=== PATIENT | male | born 1950 | race Two or more races ===

== ENCOUNTER 2020-04-23 12:59 | Emergency (ER) | payer OTHER, MEDICARE, MEDICAID, SELFPAY ==
[2020-04-23 13:04] VITALS: BP 154/62; PULSE 57; RESP 16; TEMP 36.6; O2SAT 99; BMI 28.3
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
== END 2020-04-23 15:17 | disposition home or self-care (01) ==
PROVIDERS: Emergency Provider Emergency Medicine
DX: S09.90XA Unspecified injury of head, initial encounter (principal); G44.309 Post-traumatic headache, unspecified, not intractable; S80.02XA Contusion of left knee, initial encounter; S80.01XA Contusion of right knee, initial encounter; M54.2 Cervicalgia; M54.5 Low back pain; V43.62XA Car passenger injured in collision with other type car in traffic accident, initial encounter; Y93.9 Activity, unspecified; Y92.410 Unspecified street and highway as the place of occurrence of the external cause; Y99.9 Unspecified external cause status
CPT/HCPCS: 70450; 72125; 73560; 99284

== ENCOUNTER 2020-06-27 16:25 | Outpatient (REF) | payer OTHER, MEDICARE, MEDICAID, SELFPAY | END 2020-06-27 16:26 | disposition home or self-care (01) | LOC: HO.WFDLNP 16:25 | PROVIDERS: Visit Provider Internal Medicine | DX: Z20.822 Contact with and (suspected) exposure to COVID-19 (principal) | CPT/HCPCS: C9803; U0003 ==

== ENCOUNTER 2020-11-22 08:52 | Outpatient (REF) | payer MEDICARE, MEDICAID, SELFPAY | END 2020-11-22 08:53 | disposition home or self-care (01) | LOC: HO.LAB 08:52 | PROVIDERS: Visit Provider Internal Medicine | DX: Z20.822 Contact with and (suspected) exposure to COVID-19 (principal) | CPT/HCPCS: C9803; U0003; U0005 ==

== ENCOUNTER 2021-06-07 12:26 | Outpatient (REF) | payer MEDICARE, MEDICAID, SELFPAY | END 2021-06-07 12:27 | disposition home or self-care (01) | LOC: HO.WFDLDS 12:26 | PROVIDERS: Visit Provider Internal Medicine | DX: Z20.822 Contact with and (suspected) exposure to COVID-19 (principal) | CPT/HCPCS: C9803; U0003; U0005 ==

== ENCOUNTER 2021-12-07 14:10 | Emergency (ER) | payer OTHER, MEDICARE, SELFPAY ==
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
[2021-12-07 14:31] VITALS: BP 131/56; PULSE 53; RESP 16; TEMP 36.7; O2SAT 98; BMI 28.9
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
[2021-12-07] MEDS: Lidocaine 4 % Patch ADH..PATCH 1 PATCH TRANSDERMA (17:16)
[2021-12-07] MEDS: Ketorolac Tromethamine 30 MG/ML VIAL IM (17:16)
== END 2021-12-07 17:23 | disposition home or self-care (01) ==
PROVIDERS: Emergency Provider Emergency Medicine Emergency Medical Services; PCP Internal Medicine
DX: M25.511 Pain in right shoulder (principal); M54.2 Cervicalgia; I10 Essential (primary) hypertension; E11.9 Type 2 diabetes mellitus without complications; Z79.899 Other long term (current) drug therapy
CPT/HCPCS: 73000; 73030; 96372; 99283; 99284; J1885

== ENCOUNTER 2022-06-19 08:35 | Outpatient (REF) | payer MEDICARE, MEDICAID, SELFPAY ==
--- NOTE | ~2022-06-19 | XR_ITS ---
EXAMINATION: XR SHOULDER, LEFT CLINICAL INFORMATION: Left shoulder pain COMPARISON: None TECHNIQUE: Three views of the left shoulder. FINDINGS: Mild degenerative spurring of the inferior glenoid rim and femoral head. Mild acromioclavicular osteoarthritis. No acute fracture or malalignment. No suspicious bone lesion or soft tissue calcification. XR/XR shoulder LT min 2V IMPRESSION: Mild acromioclavicular and glenohumeral osteoarthritis.
== END 2022-06-19 08:36 | disposition home or self-care (01) ==
LOC: HO.HOSX 08:35
PROVIDERS: PCP Internal Medicine; Visit Provider Physician Assistant
DX: M19.011 Primary osteoarthritis, right shoulder (principal); M19.012 Primary osteoarthritis, left shoulder
CPT/HCPCS: 73030; 99202

== ENCOUNTER 2022-11-10 14:18 | Emergency (ER) | payer MEDICARE, MEDICAID, SELFPAY ==
--- NOTE | ~2022-11-10 | CT_ITS ---
EXAMINATION: CT CERVICAL SPINE WITHOUT CONTRAST CLINICAL INFORMATION: Fall COMPARISON: April 23, 2020 TECHNIQUE: CT cervical spine with coronal and sagittal reconstructions. This CT examination was performed using dose optimization techniques as appropriate, variously including the following: *Automated exposure control *Adjustment of mA and/or kV according to patient size (this includes techniques or standardized protocols for targeted exams where dose is matched to indication/reason for exam; i.e. extremities or head) *Use of iterative reconstruction technique DLP: 503 mGy-cm FINDINGS: No abnormal prevertebral soft tissue swelling is seen. Paraspinal muscle fat planes are maintained. No acute cervical spine fracture is identified. There is left-sided anterior neural foraminal encroachment related to spurring of joints of [place] at the C6-C7 level. Degenerative disc disease C5-C7 with spurring is appreciated. There is degenerative facet disease seen on the left C2-C4 and on the right C2-C5. Carotid artery calcification present. Mild changes of centrilobular emphysema seen in the lung apices. CT/CT cervical spine wo IV con IMPRESSION: No acute cervical spine fracture. Cervical spondylosis as described. Fleischner guidelines were followed.
--- NOTE | ~2022-11-10 | CT_ITS ---
EXAMINATION: CT HEAD WITHOUT CONTRAST CLINICAL INFORMATION: Fall COMPARISON: April 23, 2020 TECHNIQUE: Contiguous axial imaging was performed from the skull base to vertex without intravenous administration of contrast. This CT examination was performed using dose optimization techniques as appropriate, variously including the following: *Automated exposure control *Adjustment of mA and/or kV according to patient size (this includes techniques or standardized protocols for targeted exams where dose is matched to indication/reason for exam; i.e. extremities or head) *Use of iterative reconstruction technique DLP: 589 mGy-cm FINDINGS: No intracranial hemorrhage is identified. No significant mass effect or midline structure shift. No abnormal extra-axial fluid collection. There is again noted to be some mild stable periventricular white matter low density which may be on the basis of microangiopathy. Cadet-white matter interface is maintained. Temporomandibular joints intact. Pterygoid plates intact. Visualized mastoid air cells unremarkable. There is some chronic left maxillary sinus disease. There is a small bony spicule adjacent to the lateral left maxillary sinus wall within the sinus which may be sequela of previous trauma. CT/CT head/brain wo IV con IMPRESSION: No acute intracranial pathology.
[2022-11-10 14:30] VITALS: BP 170/74; PULSE 58; RESP 18; TEMP 36.4; O2SAT 97; BMI 29.0
--- NOTE | 2022-11-10 14:35 | ED.GENADULT ---
HPI - General Adult General Chief complaint: Fall Stated complaint: Fall/Hit head/Neck pain/ on thinners Time Seen by Provider: 11/10/22 14:41 Source: patient and RN notes reviewed Mode of arrival: ambulatory Limitations: no limitations History of Present Illness HPI narrative: This is a 72-year-old male, with a past medical history of diabetes and heart condition , who presents to the emergency department with complaints of right-sided neck pain status post fall today. Patient reports that 2 hours prior to his arrival he was kneeling on the edge of an empty pool when he accidentally fell forward into the pool, hitting the top of his head. He states this fall was approximately 5-6 feet. Patient denies any loss of consciousness. He was able to ambulate after the injury, however reports that he has had right-sided neck pain. He denies any visual changes, numbness, tingling, weakness, headaches, chest pain, shortness of breath, abdominal pain, nausea, vomiting, or diarrhea. When asked if he is on anti coagulants he states that he is not sure, there are no anticoagulant is listed on his home medication list. No other complaints or concerns at this time. MD complaint: Head injury Onset (ago): day(s) Location: head Radiation: non-radiation and neck Pain Consistency: constant Relieving factors: none Exacerbating factors: none Associated symptoms: denies other symptoms Treatments prior to arrival: none Related Data Previous Rx's Medication Instructions Recorded acetaminophen 500 mg tablet 500 mg PO Q6H PRN fever or pain 12/07/21 (Tylenol Extra Strength) #14 tabs cyclobenzaprine 5 mg tablet 5 mg PO Q8H PRN pain (scale score 12/07/21 7-10) 5 days #14 tabs lidocaine 5 % topical patch 1 patch topical DAILY PRN pain #30 12/07/21 (Lidoderm) ea naproxen 500 mg tablet 500 mg PO BID PRN pain 10 days #20 12/07/21 tabs Allergies Allergy/AdvReac Type Severity Reaction Status Date / Time No Known Allergies Allergy Verified 11/10/22 14:26 [No Known Allergies*] Review of Systems Review of Systems: Constitutional: No Weight loss, No Fever, No Chills, No Night Sweats, No Fatigue, No Malaise ENT/Mouth: No Hearing loss, No Ear Pain, No Nasal Congestion, No Sinus Pain, No Hoarseness, No sore throat, No Rhinorrhea, No Swallowing Difficulty Eyes: No Eye Pain, No Swelling, No Redness, No Foreign Body, No Discharge, No Vision Changes Cardiovascular: No Chest Pain, No SOB, No Dyspnea on Exertion, No Orthopnea, No Edema, No Palpitations Respiratory: No Cough, No Sputum, No Wheezing, No Smoke Exposure, No Dyspnea Gastrointestinal: No Nausea, No Vomiting, No Diarrhea, No Constipation, No Abdominal pain, No Hematochezia, No Melena Genitourinary: No irregular bleeding, No Dysuria, No Urinary Frequency, No Hematuria, No Urinary Incontinence/retention, No Urgency, No Flank Pain, No Urinary Flow Changes, No Hesitancy Musculoskeletal: +neck pain, No joint pain, No Myalgias, No Joint Swelling Skin: No Skin Lesions, No rash Neuro: No Weakness, No Numbness, No Paresthesias, No Loss of Consciousness, No Dizziness, No Headache Psych: No Anxiety/Panic, No Depression, No SI/HI/AH/VH, No Social Issues, Heme/Lymph: No Bruising, No Bleeding,No Lymphadenopathy Endocrine: No Polyuria, No Polydipsia, No Temperature Intolerance Yes all other systems are reviewed and are negative Constitutional: Constitutional: Reports as per [facility] Past Medical History Medical History Diabetes HTN (hypertension) Surgical History History of heart artery stent Social History Social History (Updated 06/19/22 @ 09:03 by Carol Canela) Alcohol intake: never Patient Tobacco Use Status: Never used Tobacco Smoked in Last 30 Days: No Use of substances other than those prescribed or required for medical reasons: No Advance Directives: No Advance Directives Information Provided: No Current occupational status: retired and disabled Current occupation: right hand dominant Physical Exam ED Vital Signs: Vital Signs - 24 hr 11/10/22 14:30 11/10/22 14:41 Temperature 97.6 F 97.7 F Pulse Rate 58 54 Respiratory Rate 18 18 Blood Pressure 170/74 H 164/75 H Pulse Oximetry 97 95 Oxygen Delivery Method Room Air Room Air BMI result Body Mass Index 29.0 Const Other: Patient presenting in cervical collar General: cooperative, comfortable and no acute distress Orientation/consciousness: patient oriented x3 Limitations: no limitations HENMT Head: Yes normal to inspection, Yes normocephalic and Yes atraumatic Ears: hearing grossly normal bilaterally General nose exam: Normal external nose present Face and sinus: Yes normal facial exam Mouth: Normal oral and palatal mucosa present, oropharynx normal and moist mucous membranes Throat: Yes posterior oropharynx normal Eyes General: appearance normal, both eyes and all related structures Eyelids: Yes eyelids normal Conjunctivae: conjunctivae normal Sclerae: sclerae normal Pupils: Equal, round and reactive pupils present EOM: EOMs intact bilaterally Neck Neck: Yes normal visual inspection, Yes full ROM and Yes no lymphadenopathy Lymphatic: no lymphadenopathy noted Chest Chest palpation & inspection: normal inspection of the chest Resp Effort & Inspection: normal respiratory effort and able to speak in complete sentences Auscultation: clear to auscultation bilaterally, no crackles, no rales, no rhonchi and no wheezes Cardio Rate: regular rate Rhythm: regular rhythm Heart sounds: S1 normal heart sound present and S2 normal heart sound present GI Inspection: Yes normal to inspection Back/Spine/Pelvis Other: No midline cervical spine tenderness, patient has mild tenderness to palpation over the cervical paraspinous muscles on the right, range of motion is full and intact Skin Other: Superficial abrasion noted to the top of patient's head, no active bleeding. General skin exam: no rashes or lesions noted Trauma: no lacerations or abrasions Wounds: no wounds Neuro General: patient oriented x3 and moves all extremities Cranial nerves: Yes Equal, round and reactive pupils present Extrem Other: Right shoulder is nontender full range of motion of bilateral upper and lower extremities General: Yes normal to inspection Right upper extremity: normal to inspection Left upper extremity: normal to inspection Right lower extremity: normal to inspection Left lower extremity: normal to inspection Course Course Course Narrative: RME: 72 yold preesnts to the ED for head trauma. patient was helping freind and fell head first into a dry pool about 4ft. No loss of consciousness. patient takes asprin. Head CT and Cervical SPine CT. placed in C-collar. Jenny to the ED bedf 15. Reevaluation(s) Reevaluation #1: CT head and neck are unremarkable for any ICH or fractures in the neck, evidence of some degenerative changes in the neck. 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 Advised to take [id number] Tylenol, gentle stretching here ice, and return precautions given to patient. Patient understands and agrees with plan. Time: 16:47 Medical Decision Making Medical Decision Making [facility] Narrative: 72-year-old male, with a past medical history of diabetes and ?heart condition?, presenting to the emergency department status post fall into an empty pool landing on the top of his head which occurred 2 hours prior to arrival. On arrival, blood pressure 170/74, all vital signs within normal limits. Patient is unsure whether not he is on blood thinners at this time. On examination patient is neurologically intact only complaining of right-sided neck pain. Difficult to assess neck pain as patient was placed in cervical collar per EMS. Will reassess once this is removed. Plan CT head and neck Differential Diagnosis Differential Diagnoses: The differential diagnosis associated with the presentation includes Subdural hematoma, ICH, closed head injury, cervical spine fracture, neck pain Admission/Observation Consideration of admission/observation: Escalation of care including admission/observation considered Lab Data [facility] Lab Attestation statement: I reviewed the patient's lab results. Radiology Impression Discussion of test interpretation with radiology: I have reviewed the radiologist's reading. Radiologist Impression: EXAMINATION: CT HEAD WITHOUT CONTRAST CLINICAL INFORMATION: Fall? COMPARISON: April 23, 2020 TECHNIQUE: Contiguous axial imaging was performed from the skull base to vertex without intravenous administration of contrast. This CT examination was performed using dose optimization techniques as appropriate, variously including the following: *Automated exposure control *Adjustment of mA and/or kV according to patient size (this includes techniques or standardized protocols for targeted exams where dose is matched to indication/reason for exam; i.e. extremities or head) *Use of iterative reconstruction technique DLP: 589 mGy-cm FINDINGS: No intracranial hemorrhage is identified. No significant mass effect or midline structure shift. No abnormal extra-axial fluid collection. There is again noted to be some mild stable periventricular white matter low density which may be on the basis of microangiopathy. Cadet-white matter interface is maintained. Temporomandibular joints intact. Pterygoid plates intact. Visualized mastoid air cells unremarkable. There is some chronic left maxillary sinus disease. There is a small bony spicule adjacent to the lateral left maxillary sinus wall within the sinus which may be sequela of previous trauma. ? CT/CT head/brain wo IV con IMPRESSION: No acute intracranial pathology. Dictated By: Manuel Colon MD Signed By: <Electronically signed by Manuel Colon MD in [place]> 11/10/22 1625 DD/ 1511 EXAMINATION: CT CERVICAL SPINE WITHOUT CONTRAST CLINICAL INFORMATION: Fall? COMPARISON: April 23, 2020 TECHNIQUE: CT cervical spine with coronal and sagittal reconstructions.? This CT examination was performed using dose optimization techniques as appropriate, variously including the following: *Automated exposure control *Adjustment of mA and/or kV according to patient size (this includes techniques or standardized protocols for targeted exams where dose is matched to indication/reason for exam; i.e. extremities or head) *Use of iterative reconstruction technique DLP: 503 mGy-cm FINDINGS: No abnormal prevertebral soft tissue swelling is seen. Paraspinal muscle fat planes are maintained. No acute cervical spine fracture is identified. There is left-sided anterior neural foraminal encroachment related to spurring of joints of [place] at the C6-C7 level. Degenerative disc disease C5-C7 with spurring is appreciated. There is degenerative facet disease seen on the left C2-C4 and on the right C2-C5. ? Carotid artery calcification present. Mild changes of centrilobular emphysema seen in the lung apices. CT/CT cervical spine wo IV con IMPRESSION: No acute cervical spine fracture. ? Cervical spondylosis as described. ? Fleischner guidelines were followed. Dictated By: Manuel Colon MD Signed By: <Electronically signed by Manuel Colon MD in [place]> 11/10/22 1636 DD/ 1511 TD/TT:? Tow Feeder: External Record Review External record reviewed: Inpatient record, Office record, Outpatient record, Prior outpatient labs, Prior outpatient radiology, Primary care record and Outside ED record Discharge Plan Discharge Clinical Impression: Closed head injury, Acute neck pain Patient Disposition: Home, Self-Care Additional Instructions: Your CT head and CT neck exams showed no new injury or fractures. Please take Tylenol as needed for your pain. Gentle massage, stretching and heat or ice can help with your symptoms. If any new or worsening symptoms occur including but not limited to headache, numbness or tingling, weakness, please return for re-evaluation. Prescriptions: No Action lidocaine [Lidoderm] 5 % adhesive patch,medicated 1 patch topical DAILY MDD remove after 12 hours PRN (Reason: pain) Qty: 30 0RF Rx Instructions: leave on most painful area for up to 12 hrs cyclobenzaprine 5 mg tablet 5 mg PO Q8H PRN (Reason: pain (scale score 7-10)) 5 Days Qty: 14 0RF acetaminophen [Tylenol Extra Strength] 500 mg tablet 500 mg PO Q6H PRN (Reason: fever or pain) Qty: 14 0RF naproxen 500 mg tablet 500 mg PO BID PRN (Reason: pain) 10 Days Qty: 20 0RF Interventions: ED Discharge Assessment Last Done: 11/10/22 16:55 Discharge Date/Time: 11/10/22 16:55
[2022-11-10 14:41] VITALS: BP 164/75; PULSE 54; RESP 18; TEMP 36.5; O2SAT 95
--- NOTE | 2022-11-10 15:02 | PC.NURSE ---
pt to CT scan
--- NOTE | 2022-11-10 15:17 | PC.NURSE ---
pt back from ct scan. pt aox4, reporting right shoulder pain post fall from kneeling into pool/ 1-2 inch abrasion on pt head, pt not reporting sig head pain, pain is mostly in right shoulder. pt takes 81mg asa
== END 2022-11-10 16:55 | disposition home or self-care (01) ==
PROVIDERS: Emergency Provider Internal Medicine; PCP Internal Medicine
DX: S09.90XA Unspecified injury of head, initial encounter (principal); M54.2 Cervicalgia; R51.9 Headache, unspecified; W01.10XA Fall on same level from slipping, tripping and stumbling with subsequent striking against unspecified object, initial encounter; Y93.9 Activity, unspecified; Y92.9 Unspecified place or not applicable; Y99.9 Unspecified external cause status; Z79.899 Other long term (current) drug therapy
CPT/HCPCS: 70450; 72125; 99284

== ENCOUNTER 2024-08-05 09:02 | Emergency (ER) | payer MEDICARE, MEDICAID, SELFPAY ==
--- NOTE | ~2024-08-05 | CT_ITS ---
EXAMINATION: CT CERVICAL SPINE WITHOUT CONTRAST CLINICAL INFORMATION: Status post fall. Neck pain. COMPARISON: CT dated November 10, 2022. TECHNIQUE: Contiguous axial images through the cervical spine using 3 mm collimation with bone and soft tissue algorithm. Sagittal and coronal reformatted images acquired. This CT examination was performed using dose optimization techniques as appropriate, variously including the following: *Automated exposure control *Adjustment of mA and/or kV according to patient size (this includes techniques or standardized protocols for targeted exams where dose is matched to indication/reason for exam; i.e. extremities or head) *Use of iterative reconstruction technique DLP: 491.04 mGy centimeter. FINDINGS: The craniocervical junction is intact. Degenerative changes in the occipital condyle/lateral masses of C1. Chondrocalcinosis at C2-3. Marginal osteophyte formation at C4-5 C5-6, C6-7, and C7-T1. Decreased intervertebral disc height at C6-7. Degenerative changes in the facet joints of C2-3, C3-4 and C7-T1. Incomplete ankylosis at the C2-3 facet joints. There is no gross malalignment between the vertebral bodies or the facet joints. C1 is intact. C2 is intact. C3 is intact. C4 is intact. C5 is intact. C6 is intact. C7 is intact. No gross prevertebral compartment hematoma. Calcified plaques in the carotid bulbs and proximal ICAs bilaterally. Calcified plaques in the proximal right CCA and right subclavian artery. Tympanic cavities and mastoid air cells are aerated. Calcified plaques in the cavernous supracavernous segments both ICA. Polypoid mucosal thickening, left maxillary sinus. Desiccation seen in the nuchal ligament at C5 level. CT/CT cervical spine wo IV con IMPRESSION: Multilevel cervical spondylosis without acute fracture or trauma-related listhesis. Fleischner guidelines were followed. Electronically signed by: Russ Tejeda MD 08/05/2024 10:21 AM [facility]
--- NOTE | ~2024-08-05 | CT_ITS ---
EXAMINATION: CT HEAD WITHOUT CONTRAST CLINICAL INFORMATION: Fall down stairs,? Head strike. COMPARISON: 11/10/2022. TECHNIQUE: Contiguous axial imaging was performed from the skull base to vertex without intravenous administration of contrast. This CT examination was performed using dose optimization techniques as appropriate, variously including the following: *Automated exposure control *Adjustment of mA and/or kV according to patient size (this includes techniques or standardized protocols for targeted exams where dose is matched to indication/reason for exam; i.e. extremities or head) *Use of iterative reconstruction technique FINDINGS: There is no evidence of intracranial hemorrhage or extra-axial fluid collection. There is no mass effect, or edema. No CT evidence of acute territorial infarct. Ventricles, sulci, and cisterns are normal in size and configuration for patient age. No hydrocephalus. No midline shift. Negative hyperdense MCA sign. Negative insular ribbon sign. Patchy periventricular and deep white matter hypoattenuation is consistent with mild to moderate small vessel ischemic changes. 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 Mild atheromatous calcification of the bilateral carotid siphons and V4 segments vertebral arteries bilaterally. Globes and orbital contents image normally. There are bilateral lens implants. No extracranial soft tissue abnormalities. Mucous retention cyst left maxillary antrum. The paranasal sinuses, mastoid air cells, and tympanic cavities are otherwise normally aerated. No suspicious bony abnormalities. There are no acute fractures evident. CT/CT head/brain wo IV con IMPRESSION: No acute intracranial abnormality. No fractures. Stable chronic findings. Electronically signed by: Richie Christensen MD 08/05/2024 10:25 AM [facility]
--- NOTE | ~2024-08-05 | XR_ITS ---
EXAMINATION: XR SHOULDER, RIGHT CLINICAL INFORMATION: fall with right shoulder pain COMPARISON: 06/19/2022. TECHNIQUE: AP external rotation, Grashey, scapular Y, and axillary views of the right shoulder. FINDINGS: Normal bone mineralization. No fracture, dislocation, or suspicious bone lesion. Normal alignment. The glenohumeral joint is intact with mild degenerative arthrosis. Mild chondrocalcinosis of the superior articular cartilage of the humeral head. The AC joint demonstrates moderate osteoarthritis of both superior and undersurface spurs. Type II acromion. No undersurface spurring. The subacromial space is preserved. Remainder of the soft tissue and bony structures appear normal. XR/XR shoulder RT min 2V IMPRESSION: 1. No acute findings right shoulder. No malalignment. 2. Glenohumeral and AC joint degenerative changes as described. Mild superior humeral articular chondrocalcinosis. Electronically signed by: Richie Christensen MD 08/05/2024 09:45 AM [facility]
[2024-08-05 09:10] VITALS: BP 137/77; PULSE 63; RESP 18; TEMP 36.4; O2SAT 97; BMI 29.9
--- NOTE | 2024-08-05 10:15 | ED_ITS ---
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 He states he descended 1/2 a flight of stairs when he went to pivot to descend the second half, causing him to lose his balance and fall over. No preceding symptoms. He reports falling onto his right side, primarily his shoulder. He is unsure of head strike however denies any LOC. He is anticoagulated on plavix. He states he was on the ground for only a few minutes before he was able to stand and continue descending the stairs. He endorses pain to his right shoulder and right side of his neck. He trialed a lidocaine patch last night without improvement in pain. Reports pain on lifting the right shoulder. Has to assist with the opposite arm. Denies any numbness/tingling/weakness of the RUE. Denies back/chest/abd pain. Denies headache, dizziness, vision changes, confusion. His at bedside states he is at his baseline. On chart review, patient has a hx of chronic b/l shoulder pain. Followed with [facility] Ortho back in 2022. He informed ortho that he was told at some point he needed surgery on his right shoulder however was never cleared d/t cardiac issues. He was prescribed PT at that time with no other issues. No hx of shoulder surgery. Related Data Previous Rx's ?Medication ?Instructions ?Recorded acetaminophen 500 mg tablet 500 mg PO Q6H PRN fever or pain 12/07/21 (Tylenol Extra Strength) #14 tabs cyclobenzaprine 5 mg tablet 5 mg PO Q8H PRN pain (scale score 12/07/21 7-10) 5 days #14 tabs lidocaine 5 % topical patch 1 patch topical DAILY PRN pain #30 12/07/21 (Lidoderm) ea naproxen 500 mg tablet 500 mg PO BID PRN pain 10 days #20 12/07/21 tabs acetaminophen 500 mg tablet 500 mg PO Q6H PRN pain (scale 08/05/24 (Tylenol Extra Strength) score 4-6) #20 tabs lidocaine 5 % topical patch 1 patch topical DAILY #15 ea 08/05/24 (Lidoderm) Allergies Allergy/AdvReac Type Severity Reaction Status Date / Time No Known Allergies Allergy Verified 08/05/24 09:14 [No Known Allergies*] Review of Systems Review of Systems: Constitutional: No fever, chills, fatigue, night sweats, weight changes ENT/Mouth: No ear pain, hearing loss, nasal congestion, sinus pain, rhinorrhea, sore throat Eyes: No eye pain, swelling, redness, vision changes, discharge Cardio: No chest pain, palpitations, GARRISON, orthopnea, peripheral edema Pulm: No SOB, cough, sputum, wheezing, dyspnea, hemoptysis GI: No nausea, vomiting, hematemesis, abdominal pain, diarrhea, constipation, hematochezia, melena : No irregular bleeding, dysuria, frequency, urgency, hesitancy, hematuria, flank pain, urinary flow changes, urinary incontinence or retention MSK: No back pain, joint pain, myalgias, +neck pain, +right shoulder pain Skin: No lesions, rashes Neuro: No weakness, numbness, paresthesias, LOC, dizziness, headache Psych: No anxiety/panic, depression, SI/HI, AH/VH All other systems reviewed and are negative. [facility] Past Medical History Attestation statement: The following information was validated with the patient. Source: old records reviewed and nursing notes reviewed Medical History HTN (hypertension) Diabetes Surgical History History of heart artery stent Social History Social History Alcohol intake: never Patient Tobacco Use Status: Never used Tobacco Advance Directives: No Advance Directives Information Provided: Yes Current occupational status: retired and disabled Current occupation: right hand dominant Physical Exam Vital Signs: Vital Signs: Last Vital Signs Temp 98.5 F 08/05/24 10:20 Pulse 54 08/05/24 10:20 Resp 16 08/05/24 10:20 BP 133/60 08/05/24 10:20 Pulse Ox 100 08/05/24 10:20 O2 Del Method Room Air 08/05/24 10:20 BMI result Body Mass Index 29.9 vital signs stable. afebrile General: Well appearing, in no acute distress. Skin: Warm, dry, intact. No rashes or lesions. Head: Normocephalic, atraumatic. no sawant sign no raccoon eyes. EENT: Hearing is intact b/l. Conjunctiva clear. PERRLA. EOM intact. Moist mucous membranes.? Neck: ttp along right cervical paraspinal musculature. no midline spinous tenderness or step off. from intact to c spine. Cardiac: Chest wall symmetric. RRR Lungs: Normal respiratory effort without accessory muscle use. CTA bilaterally. Abdomen: Soft, non-tender, non-distended. No rebound tenderness or guarding. Positive BS x4. Back: No midline spinous or paraspinal tenderness. No step off deformity. Ext: +right shoulder normal to inspection, ttp over bicipital groove. ttp along right deltoid. pain on abduction and extension. rom limited to extension, abduction. cms intact distally. Neuro: AOx3. Normal speech. NIH 0. Ambulating with steady gait. Course Course Course Narrative: xr right shoulder does not demonstrate fracture or dislocation. there are degenerative changes noted to glenohumeral and AC joint. ct head/brain without bleed or skull fracture. ct cervical spine without fracture or subluxation. given pain/ difficulty w/ abduction/ extendion of RUE, concern to rotator cuff pathology. patient placed in sling. advised to f/u with either pcp or ortho outpatient. referral provided. after discussion w/ patient and , given hx of hyperglycemia, will hold on steroids. Medications Administered Discontinued Medications Generic Name Dose Route Start Last Admin Trade Name Modeq PRN Reason Stop Dose Admin Acetaminophen 975 mg 08/05/24 10:33 08/05/24 10:42 Acetaminophen 325 Mg Tablet PO 08/05/24 10:34 975 mg ONCE ONE Administration Lidocaine 1 patch 08/05/24 10:33 08/05/24 10:42 Lidocaine 4 % Patch Adh..Patch TRANSDERMA 08/05/24 10:34 1 patch ONCE ONE Administration Protocol Procedures Orthopedic Splinting/Casting Injury #1: Side: left Upper Extremity Injury Location: shoulder Upper Extremity Immobilizer: sling/shoulder immobilizer Medical Decision Making Medical Decision Making MDM Narrative: 74 year old male with pmhx significant for HDL, HTN, CAD, DM, hypothyroid presents to the ED today with his for evaluation of right shoulder pain s/p mechanical slip and fall last night. vital signs stable. he is well appearing and in NAD. on exam, right shoulder normal to inspection, ttp over bicipital groove. ttp along right deltoid. pain on abduction and extension. rom limited to extension, abduction. cms intact distally. head is normocephalic, atraumatic without racoon eyes or battles sign. ttp along right cervical paraspinal musculature. no midline spinous tenderness or step off. from intact to c spine. Differential diagnosis includes shoulder fracture v dislocation, rotator cuff injury, tendonitis. Unlikely NV compromise, threat to limb, compartment syndrome. Concern for cervical sprain, strain, spasm. Unlikely cervical facture/ subluxation, cord injury. Unlikely ICH, CVA/TIA, basillar skull fracture, TBI. Plan for imaging, pain control, and re-evaluation. Differential Diagnosis Differential Diagnoses: The differential diagnosis associated with the presentation includes as above. Admission/Observation not indicated. Independent Interpretation I performed an independent interpretation of an: Plain X-Ray and CT Scan Interpretation: XR right shoulder w/o fracture CT head without acute bleed or fracture CT cervical spine without acute fracture or subluxation Radiology Impression Discussion of test interpretation with radiology: I have reviewed the radiologist's reading. Radiologist Impression: Procedure(s): CT head/brain wo IV con Accession Number(s): [id number] cc: Chava Owen MD; Charity Griffin~ Report Number: [id number]: Total DLP = 648.33 mGy-cm EXAMINATION: CT HEAD WITHOUT CONTRAST CLINICAL INFORMATION: Fall down stairs,? Head strike. COMPARISON: 11/10/2022. TECHNIQUE: Contiguous axial imaging was performed from the skull base to vertex without intravenous administration of contrast. This CT examination was performed using dose optimization techniques as appropriate, variously including the following: *Automated exposure control *Adjustment of mA and/or kV according to patient size (this includes techniques or standardized protocols for targeted exams where dose is matched to indication/reason for exam; i.e. extremities or head) *Use of iterative reconstruction technique FINDINGS: There is no evidence of intracranial hemorrhage or extra-axial fluid collection. There is no mass effect, or edema. No CT evidence of acute territorial infarct. Ventricles, sulci, and cisterns are normal in size and configuration for patient age. No hydrocephalus. No midline shift. Negative hyperdense MCA sign. Negative insular ribbon sign. Patchy periventricular and deep white matter hypoattenuation is consistent with mild to moderate small vessel ischemic changes. 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 Mild atheromatous calcification of the bilateral carotid siphons and V4 segments vertebral arteries bilaterally. Globes and orbital contents image normally. There are bilateral lens implants. No extracranial soft tissue abnormalities. Mucous retention cyst left maxillary antrum. The paranasal sinuses, mastoid air cells, and tympanic cavities are otherwise normally aerated. No suspicious bony abnormalities. There are no acute fractures evident. CT/CT head/brain wo IV con IMPRESSION: No acute intracranial abnormality. No fractures. Stable chronic findings. Electronically signed by: Richie Christensen MD 08/05/2024 10:25 AM [facility] Procedure(s): CT cervical spine wo IV con Accession Number(s): [id number] cc: Chava Owen MD; Charity Griffin Report Number: [id number]: Total DLP = 491.04 mGy-cm EXAMINATION: CT CERVICAL SPINE WITHOUT CONTRAST CLINICAL INFORMATION: Status post fall. Neck pain. COMPARISON: CT dated November 10, 2022. TECHNIQUE: Contiguous axial images through the cervical spine using 3 mm collimation with bone and soft tissue algorithm. Sagittal and coronal reformatted images acquired. This CT examination was performed using dose optimization techniques as appropriate, variously including the following: *Automated exposure control *Adjustment of mA and/or kV according to patient size (this includes techniques or standardized protocols for targeted exams where dose is matched to indication/reason for exam; i.e. extremities or head) *Use of iterative reconstruction technique DLP: 491.04 mGy centimeter. FINDINGS: The craniocervical junction is intact. Degenerative changes in the occipital condyle/lateral masses of C1. Chondrocalcinosis at C2-3. Marginal osteophyte formation at C4-5 C5-6, C6-7, and C7-T1. Decreased intervertebral disc height at C6-7. Degenerative changes in the facet joints of C2-3, C3-4 and C7-T1. Incomplete ankylosis at the C2-3 facet joints. There is no gross malalignment between the vertebral bodies or the facet joints. C1 is intact. C2 is intact. C3 is intact. C4 is intact. C5 is intact. C6 is intact. C7 is intact. No gross prevertebral compartment hematoma. Calcified plaques in the carotid bulbs and proximal ICAs bilaterally. Calcified plaques in the proximal right CCA and right subclavian artery. Tympanic cavities and mastoid air cells are aerated. Calcified plaques in the cavernous supracavernous segments both ICA. Polypoid mucosal thickening, left maxillary sinus. Desiccation seen in the nuchal ligament at C5 level. CT/CT cervical spine wo IV con IMPRESSION: Multilevel cervical spondylosis without acute fracture or trauma-related listhesis. Fleischner guidelines were followed. Electronically signed by: Russ Tejeda MD 08/05/2024 10:21 AM EST Procedure(s): XR shoulder RT min 2V Accession Number(s): [id number] cc: Warren Wright MD; Chava Owen MD~ EXAMINATION: XR SHOULDER, RIGHT CLINICAL INFORMATION: fall with right shoulder pain COMPARISON: 06/19/2022. TECHNIQUE: AP external rotation, Grashey, scapular Y, and axillary views of the right shoulder. FINDINGS: Normal bone mineralization. No fracture, dislocation, or suspicious bone lesion. Normal alignment. The glenohumeral joint is intact with mild degenerative arthrosis. Mild chondrocalcinosis of the superior articular cartilage of the humeral head. The AC joint demonstrates moderate osteoarthritis of both superior and undersurface spurs. Type II acromion. No undersurface spurring. The subacromial space is preserved. Remainder of the soft tissue and bony structures appear normal. XR/XR shoulder RT min 2V IMPRESSION: 1. No acute findings right shoulder. No malalignment. 2. Glenohumeral and AC joint degenerative changes as described. Mild superior humeral articular chondrocalcinosis. Electronically signed by: Richie Christensen MD 08/05/2024 09:45 AM EST Independent Historian Clinical information obtained from an independent historian. History obtained from or confirmed by: Spouse () External Record Review External record reviewed: Inpatient record, Office record and Outpatient record Prescription Management I considered prescription management with: Pain Medication Chronic Conditions Patient?s care impacted by: Other (osteoarthritis) Social Determinants Patient?s care significantly limited by Social Determinants of Health including: Other Social Determinant of Health Critical Care Time Critical Care Time Critical Care Time: No Discharge Plan Discharge Clinical Impression: Injury of right rotator cuff, Fall down stairs, Cervical strain Patient Disposition: Home, Self-Care Instructions: Cervical Strain (ED), Rotator Cuff Injury (ED), Fall Prevention (ED) Additional Instructions: You were evaluated in the ED for shoulder and neck pain following a fall. The xray of your right shoulder does not demonstrate any fracture or dislocation. Given that you are having difficulty lifting your right arm, I am concerned about an injury to your rotator cuff muscles. You have been placed in a sling for comfort. You may remove this to shower. I recommend Tylenol extra strength every 4-6 hours for pain control. You need to follow up with either your primacy care physician or customer specialist. If you do not have one, a referral has been provided. Please contact them to schedule and appointment. they will not call you. Return with any new or worsening symptoms. In the case of an emergency call 911. Prescriptions: New acetaminophen [Tylenol Extra Strength] 500 mg tablet 500 mg PO Q6H PRN (Reason: pain (scale score 4-6)) Qty: 20 0RF lidocaine [Lidoderm] 5 % adhesive patch,medicated 1 patch topical DAILY Qty: 15 0RF Rx Instructions: leave on most painful area for up to 12 hrs No Action lidocaine [Lidoderm] 5 % adhesive patch,medicated 1 patch topical DAILY MDD remove after 12 hours PRN (Reason: pain) Qty: 30 0RF Rx Instructions: leave on most painful area for up to 12 hrs cyclobenzaprine 5 mg tablet 5 mg PO Q8H PRN (Reason: pain (scale score 7-10)) 5 Days Qty: 14 0RF acetaminophen [Tylenol Extra Strength] 500 mg tablet 500 mg PO Q6H PRN (Reason: fever or pain) Qty: 14 0RF naproxen 500 mg tablet 500 mg PO BID PRN (Reason: pain) 10 Days Qty: 20 0RF Referrals: [facility] Orthopedic Surgeons [Provider Group] - 5 days (rotator cuff injury) Discharge Date/Time: 08/05/24 11:04 Print Language: Slovenian
[2024-08-05 10:20] VITALS: BP 133/60; PULSE 54; RESP 16; TEMP 36.9; O2SAT 100
[2024-08-05] MEDS: Lidocaine 4 % Patch ADH..PATCH 1 PATCH TRANSDERMA (10:42)
[2024-08-05] MEDS: Acetaminophen 325 MG TABLET 975 MG PO (10:42)
--- NOTE | 2024-08-05 10:46 | PC.NURSE ---
medication administered per provider order. lidocaine patch applied to right shoulder.
--- NOTE | 2024-08-05 10:56 | PC.NURSE ---
sling applied to right shoulder by tech. pt tolerated well.
[2024-08-05 10:57] VITALS: BP 133/60; PULSE 54; RESP 16; TEMP 36.9; O2SAT 100
== END 2024-08-05 11:04 | disposition home or self-care (01) ==
PROVIDERS: Emergency Provider Emergency Medicine; PCP Internal Medicine
DX: S46.001A Unspecified injury of muscle(s) and tendon(s) of the rotator cuff of right shoulder, initial encounter (principal); S46.011A Strain of muscle(s) and tendon(s) of the rotator cuff of right shoulder, initial encounter; S16.1XXA Strain of muscle, fascia and tendon at neck level, initial encounter; W10.8XXA Fall (on) (from) other stairs and steps, initial encounter; M25.511 Pain in right shoulder; Y93.9 Activity, unspecified; Y92.9 Unspecified place or not applicable; Y99.9 Unspecified external cause status
CPT/HCPCS: 70450; 72125; 73030; 99283; 99284

== ENCOUNTER → 2024-08-05 09:18 | Outpatient (BNV) | payer MEDICARE, MEDICAID, SELFPAY | PROVIDERS: Emergency Provider Emergency Medicine; PCP Internal Medicine; Visit Provider Radiology Diagnostic Radiology | DX: M47.892 Other spondylosis, cervical region (principal); S09.90XA Unspecified injury of head, initial encounter; M19.011 Primary osteoarthritis, right shoulder | CPT/HCPCS: 70450; 72125; 73030 ==

== ENCOUNTER 2024-10-29 11:33 | Outpatient (AMB) | payer MEDICARE, SELFPAY ==
--- NOTE | 2024-10-29 11:34 | A.OFFVIS_ITS ---
Intake Visit Reasons: New prob- RT shoulder sprain DOI 08/04/24 Intake Note: Gianluca is a 74 year old right hand dominant male who presents to the office today for a RT shoulder sprain, DOI 08/04/24. Patient was referred by [facility], per note patient was walking down the stairs when he lost his balance and fell over. He reports falling onto his right side, primarily his shoulder. He has been attending physical therapy, that has helped improve his ROM, however he is still limited. No numbness or tingling. States his pain is primarily located in his shoulder. Allergies No Known Allergies [No Known Allergies*] Allergy (Verified 10/29/24 11:45) Medication List - Last Reconciled 10/29/24 by Gabbie Smith PA-C acetaminophen (Tylenol Extra Strength) 500 mg PO Q6H PRN albuterol sulfate 90 mcg/actuation (Ventolin HFA) 2 puffs inhalation Q6H PRN aspirin (Adult Aspirin Regimen) 81 mg PO DAILY citalopram 20 mg PO DAILY clopidogrel 75 mg PO DAILY glipizide 10 mg PO DAILY isosorbide mononitrate ER 30 mg PO DAILY levothyroxine 25 mcg PO QAM lisinopril 10 mg PO DAILY metformin ER 750 mg PO BID nitroglycerin 45 mg IV pioglitazone 45 mg PO DAILY rosuvastatin 40 mg PO DAILY HPI HPI New prob- RT shoulder sprain DOI 08/04/24: Details: 74-year-old gentleman presents to the office today for right shoulder pain. I saw him in the past for shoulder pain which due to an old injury. He was attending physical therapy with some relief however most recently he had a re- injury in July of 2024. He states most of his discomfort is when he is trying to reach behind his back otherwise there is not much pain. He does have physical therapy appointment set up at [facility] on 11/03/2024. [facility] Medical History HTN (hypertension) Diabetes Surgical History History of heart artery stent Social History Alcohol intake: never Patient Tobacco Use Status: Never used Tobacco Current occupational status: retired and disabled Current occupation: right hand dominant Review of Systems Const All systems reviewed & are unremarkable except as noted in HPI and below Physical Exam Extrem Other: Right shoulder normal to inspection. Forward flexion and 90 degrees external rotation to 90 internal rotation to back pocket. He has mild tenderness to palpation over the AC joint and proximal biceps tendon. Weakness with rotator cuff strength testing on the right when compared to contralateral side. Neurovascularly intact. Results Reviewed Results Reviewed: X-rays of the right shoulder obtained on August 05 in the emergency department do show some osteoarthritis in the right shoulder Assessment & Plan Assessment & Plan (1) Rotator cuff tear arthropathy: Code(s): M75.100 - Unspecified rotator cuff tear or rupture of unspecified shoulder, not specified as traumatic; M12.819 - Other specific arthropathies, not elsewhere classified, unspecified shoulder Category: Medical Plan: We discussed options today which include physical therapy and cortisone injections. He would like to hold off on an injection at this time as he is not in favor of needles. I encouraged him to continue with the physical therapy that has been ordered at [facility] and if symptoms persist or worsen or there is any concerns he can contact our office if he would like to proceed with injection otherwise he will follow up as needed. Coding Level of Care Code Est Pt Level 3 (23542) Complex EM visit Add On G2211 Diagnoses Rotator cuff tear arthropathy M75.100; M12.819
== END 2024-10-29 12:00 | disposition home or self-care (01) ==
LOC: HO.HOS 11:33
PROVIDERS: PCP Internal Medicine; Visit Provider Physician Assistant
DX: M75.100 Unspecified rotator cuff tear or rupture of unspecified shoulder, not specified as traumatic (principal); M12.819 Other specific arthropathies, not elsewhere classified, unspecified shoulder
CPT/HCPCS: 99213; G2211

== ENCOUNTER → 2024-10-29 11:33 | Outpatient (BNVA) | payer MEDICARE, SELFPAY | PROVIDERS: PCP Internal Medicine; Visit Provider Physician Assistant | DX: M75.100 Unspecified rotator cuff tear or rupture of unspecified shoulder, not specified as traumatic (principal); M12.819 Other specific arthropathies, not elsewhere classified, unspecified shoulder | CPT/HCPCS: 99212 ==